=== PATIENT | male | born 1980 | race Two or more races ===

== ENCOUNTER 2017-03-30 01:10 | Emergency (ER) | payer SELFPAY ==
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
[2017-03-30] MEDS ORDERED: Ibuprofen 600 MG Tab PO ONE (02:37)
--- NOTE | 2017-03-31 08:34 | CR ---
Nasal bone: Three views of the nasal bone were obtained. Comparison: No prior facial bone study. Visualized sinuses are clear. No nasal bone fracture is appreciated. Impression: 1. No nasal bone abnormality is identified. Diagnostic code #1
== END 2017-03-30 02:48 | disposition home or self-care (01) ==
LOC: EDBD 01:10 → JD.ED 01:10
DX: S02.2XXA Fracture of nasal bones, initial encounter for closed fracture (principal); Y04.8XXA Assault by other bodily force, initial encounter
CPT/HCPCS: 70160; 99283; A9270

== ENCOUNTER 2023-06-14 20:13 | Emergency (ER) | payer BC, OTHER ==
[2023-06-14 21:01] LABS: BASOPHILS PERCENT AUTO 0.5 % (0.0-1.0); EOSINOPHILS ABSOLUTE AUTO 0.1 K/mm3 (0.0-0.4); EOSINOPHILS PERCENT AUTO 1.4 % (0.0-6.0); HEMATOCRIT 44.6 % (42.0-52.0); HEMOGLOBIN 15.5 gm/dl (14.0-18.0); IMMATURE GRAN ABSOLUTE AUTO 0.03 K/mm3 (0.00-0.05); IMMATURE GRAN PERCENT AUTO 0.4 % (0.0-0.4); LYMPHOCYTES PERCENT AUTO 36.1 % (24.0-44.0); MEAN CORPUSCULAR HEMOGLOBIN 30.6 pg (28.0-32.0); MEAN CORPUSCULAR HGB CONC 34.8 g/dl (32.0-36.0); MEAN PLATELET VOLUME 10.4 fl (9.4-12.4); MONOCYTES ABSOLUTE AUTO 0.7 K/mm3 (0.0-0.8); MONOCYTES PERCENT AUTO 7.8 % (0.0-8.0); NEUTROPHILS ABSOLUTE AUTO 4.5 K/mm3 (1.8-7.7); NEUTROPHILS PERCENT AUTO 53.8 % (41.0-71.0); PLATELET COUNT,PLT 239 K/mm3 (150-400); RED BLOOD CELL COUNT 5.07 M/mm3 (4.52-5.90); WHITE BLOOD CELL COUNT,WBC 8.36 K/mm3 (3.9-11.3)
[2023-06-14 21:21] LABS: A/G RATIO 0.9 (1-2); ALBUMIN 4.1 g/dl (3.4-5.0); ANION GAP 10.3 (5-15); BILIRUBIN TOTAL 0.5 mg/dL (0.2-1.0); BUN/CREATININE RATIO 15.6 (14-18); C-REACTIVE PROTEIN 2.3 mg/dL (<1.0); CALCIUM 9.7 mg/dL (8.5-10.1); CREATININE 0.9 mg/dL (0.7-1.3); EST CRCL DRUG DOSING (CG) 106.92 mL/min; POTASSIUM,K 4.3 mEq/L (3.5-5.1); PROTEIN TOTAL,TP 8.5 g/dl (6.4-8.2)
[2023-06-14] MEDS: predniSONE 10 MG Tab PO ONE (22:10)
== END 2023-06-14 22:11 | disposition home or self-care (01) ==
LOC: JD.ED 20:13
DX: M70.42 Prepatellar bursitis, left knee (principal)
CPT/HCPCS: 36415; 73564; 80053; 85025; 86140; 99283; J7512